=== PATIENT | female | born 1965 | race African-American/Black ===

== ENCOUNTER 2020-02-14 16:32 | Emergency (ER) | payer BC, SELFPAY ==
--- NOTE | ~2020-02-14 | XR_ITS ---
EXAMINATION: XR chest 1V portable DATE: 02/14/2020 17:29 INDICATION: Fever and shortness of breath TECHNIQUE: frontal view of the chest was obtained. COMPARISON: None FINDINGS: Airspace opacities in the bilateral lower lung zones. No pleural effusion or pneumothorax. The cardio mediastinal silhouette is normal. Visualized bones and soft tissues are unremarkable. IMPRESSION: 1. Airspace opacities in the bilateral lower lung zone which could represent atelectasis, pneumonia, mild pulmonary edema or some combination thereof. Reviewed, dictated and finalized at location A. IMPRESSION: 1. Airspace opacities in the bilateral lower lung zone which could represent at electasis, pneumonia, mild pulmonary edema or some combination thereof.
[2020-02-14 16:53] VITALS: BP 145/82; PULSE 89; RESP 15; TEMP 39.2; O2SAT 100
--- NOTE | 2020-02-14 16:53 | ECG_ITS ---
Measurements Intervals [place] Rate: 99 P: 73 ID: [id number] QRS: 46 QRSD: 82 T: 57 QT: 312 QTc: 400 Interpretive Statements SINUS RHYTHM NORMAL ECG Electronically Signed On 02-14-2020 19:00:30 CDT by Rosalino Brush D.O.
[2020-02-14 16:58] VITALS: BP 145/82; PULSE 87; RESP 22; O2SAT 100
[2020-02-14 17:14] LABS: Hematocrit 38.9 % (37.0-47.0); Hemoglobin 12.3 g/dL (12.0-15.0); Immature Granulocyte Absolute 0.01 K/mm3 (0.00-0.031); Immature Granulocyte Percent A 0.3 % (0-0.5); Lymphocytes Absolute Auto 0.97 K/mm3 (0.9-3.2); Mean Corpuscular HGB Conc 31.6 g/dl (32-36); Mean Corpuscular Hemoglobin 26.3 pg (26-34); Mean Corpuscular Volume 83.1 fl (80-100); Mean Platelet Volume 10.2 fl (7.4-10.4); Monocytes Absolute Auto 0.2 K/mm3 (0.1-0.6); Monocytes Percent Auto 5.8 % (2.6-8.5); Neutrophils Absolute Auto 2.3 K/mm3 (1.3-6.7); Neutrophils Percent Auto 65.9 % (45.5-73.1); Platelet Count Result 180 k/mm3 (150-375); Red Blood Count 4.68 M/mm3 (4.2-5.4); Red Cell Distribution Width 13.2 % (11.5-14.5); White Blood Count 3.5 K/mm3 (4.5-10.0)
[2020-02-14] MEDS: SODIUM CHLORIDE 0.9% IV 1,000 ML 999 ML IV CONT (17:20)
[2020-02-14 17:28] LABS: Lactic Acid Reflex 0.6 mmol/L (0.7-2.1)
[2020-02-14 17:29] LABS: Alanine Aminotransferase 18 U/L (4-35); Albumin Level 3.8 g/dL (3.5-5.1); Alkaline Phosphatase 86 U/L (38-126); Aspartate Amino Transferase 36 U/L (14-36); Bilirubin,Total 0.5 mg/dL (0.2-1.3); Blood Urea Nitrogen 8 mg/dL (7-17); CRP 2.8 mg/dL (<1.0); Calcium 8.6 mg/dL (8.4-10.2); Carbon Dioxide 24 mmol/L (22-30); Chloride 105 mmol/L (98-107); Estimated CRCL calculation 90 ml/min; Estimated Glomerular Filt Rate > 60; Glucose 102 mg/dL (65-105); Lactate Dehydrogenase 712 U/L (313-618); Potassium 3.6 mmol/L (3.4-5.0); Sodium 137 mmol/L (137-145)
[2020-02-14 17:50] VITALS: TEMP 38.2
--- NOTE | 2020-02-14 17:58 | ED.SOB ---
HPI - SOB/Dyspnea General Chief Complaint: Shortness of Breath/Dyspnea Stated Complaint: vomiting/body aches/sob Time Seen by Provider: 02/14/20 17:15 Source: patient Mode of arrival: ambulatory Limitations: no limitations History of Present Illness HPI Narrative: This is a 54 year old female that presents to the ER for cold symptoms x 1.5 weeks. Reports cough, congestion, shortness of breath and myalgias. Reports history of COPD. Reports a coworker that recently tested positive for coronavirus. Also reports she has been having intermittent left-sided chest pain that is sharp in nature. Lasts only briefly. Resolves on its own. Related Data Home Medications Medication Instructions Recorded Confirmed alendronate 70 mg PO WEEKLY 02/14/20 cetirizine 10 mg PO DAILY 02/14/20 diltiazem HCl 180 mg PO DAILY 02/14/20 montelukast 10 mg PO HS 02/14/20 pitavastatin calcium [Livalo] 4 mg PO DAILY 02/14/20 Allergies Allergy/AdvReac Type Severity Reaction Status Date / Time No Known Allergies Allergy Verified 02/14/20 17:17 Review of Systems Review of Systems: Narrative: CONSTITUTIONAL: Reports fever ENT: Reports rhinorrhea, congestion, sore throat CARDIOVASCULAR: Reports chest pain RESPIRATORY: Reports cough and dyspnea. MUSCULOSKELETAL: Reports myalgia. All systems reviewed & are unremarkable except as noted in HPI and below PMFSH Past Medical History Medical History (Updated 02/14/20 @ 19:34 by Chiara Shaw PA-C) History of COPD Family History Family History (Updated 11/21/16 @ 09:05 by DOCTOR UNKNOWN) Other Family history of alcoholism Family history of cardiovascular disease Family history of congestive heart failure Family history of malignant neoplasm of breast Hypertension Social History Social History (Updated 02/14/20 @ 18:04 by Chiara Shaw PA-C) Smoking status: Former smoker Alcohol intake: never Gender identity (if verbalized by the patient): Female Exam Narrative: Exam Narrative: GENERAL: Well-appearing, well-nourished, and in no acute distress. HEAD: Normocephalic, atraumatic. EYES: EOMI. ENT: Nares clear, no rhinorrhea or epistaxis. Mucous membranes moist. Oropharynx without tonsillar hypertrophy exudate or other lesions. Bilateral TMs pearly díaz non-bulging NECK: Supple. No adenopathy or masses. CHEST: No respiratory distress. Rales in the bilateral lower lobes. No wheezes or rhonchi HEART: Regular rate and rhythm. No murmur heard. Normal peripheral pulses. EXTREMITIES: Normal range of motion. No edema. SKIN: Warm, dry, no rash. NEURO: No focal deficits. Alert and oriented x3. PSYCH: Normal mood and affect Course Vital Signs Vital signs: Vital Signs Temperature 102.6 F H 02/14/20 16:53 Pulse Rate 89 02/14/20 16:53 Respiratory Rate 15 02/14/20 16:53 Blood Pressure 145/82 H 02/14/20 16:53 Pulse Oximetry 100 02/14/20 16:53 Temperature 100.8 F H 02/14/20 18:42 Pulse Rate 86 02/14/20 19:18 Respiratory Rate 19 02/14/20 19:18 Blood Pressure 146/80 H 02/14/20 19:18 Pulse Oximetry 100 02/14/20 19:18 MDM - SOB/Dyspnea MDM Narrative Medical decision making narrative: Patient presents to the ER for cold symptoms x 1.5 weeks. Reports recent contact with positive coronavirus co-worker. Patient febrile upon arrival, given IV fluids and Tylenol in the ED. Oxygen saturation has remained normal on room air. CBC is with mild leukopenia. Metabolic panel without acute findings. LDH is mildly elevated. Ferritin is normal. CRP mildly elevated. Patient had been reporting some intermittent chest pain over the last couple of days. Non-exertional in nature. EKG is without concerning findings and troponin is negative. Chest x-ray shows airspace opacities in the bilateral lower lung zones. Coronavirus test sent. Patient given dose of IV antibiotics in the ED for pneumonia. Will finish Azithromycin course outpatient due to co-morbid COPD. Sherry
[2020-02-14 18:19] LABS: Troponin I < 0.012 ng/mL (0.000-0.034)
[2020-02-14 18:42] VITALS: BP 154/81; PULSE 84; RESP 24; TEMP 38.2; O2SAT 98
[2020-02-14 19:18] VITALS: BP 146/80; PULSE 86; RESP 19; O2SAT 100
[2020-02-14 20:26] VITALS: BP 126/85; PULSE 79; RESP 19; TEMP 37.7; O2SAT 100
[2020-02-15 13:20] LABS: SARS-CoV-2 RNA PCR Positive
== END 2020-02-14 20:27 | disposition home or self-care (01) ==
PROVIDERS: Physician Assistant; Emergency Provider Emergency Medicine; PCP Internal Medicine
DX: U07.1 COVID-19 (principal); J18.9 Pneumonia, unspecified organism; J44.9 Chronic obstructive pulmonary disease, unspecified; Z87.891 Personal history of nicotine dependence
CPT/HCPCS: 36415; 71045; 80053; 82728; 83605; 83615; 84484; 85025; 86140; 87040; 87635; 93005; 96365; 96367; 96375; 99284; C9803; J0131; J0456; J0696; J7030; U0003

== ENCOUNTER 2020-02-28 13:58 | Outpatient (CLI) | payer BC, SELFPAY ==
--- NOTE | ~2020-02-28 | XR_ITS ---
XR chest 2V 02/28/2020 14:20 Indication: Pneumonia Procedure: 2 view chest Comparison: 02/14/2020 Findings: Improving bibasilar airspace disease, consistent with resolving pneumonia. Heart size nisreen l. No pleural effusion or pneumothorax. The lungs are hyperinflated which is consistent with, but not diagnostic of chronic obstructive pulmonary disease. Impression: 1: Improving bibasilar airspace disease, compatible with resolving pneumonia. Reviewed, dictated and finalized at location A. Impression: 1: Improving bibasilar airspace disease, compatible with resolving pneumonia.
== END 2020-02-28 13:59 | disposition home or self-care (01) ==
LOC: ANHIMG 14:05
PROVIDERS: PCP Internal Medicine; Visit Provider Internal Medicine
DX: J18.9 Pneumonia, unspecified organism (principal); R91.8 Other nonspecific abnormal finding of lung field
CPT/HCPCS: 71046

== ENCOUNTER 2021-11-29 23:27 | Emergency (ER) | payer BC, SELFPAY ==
--- NOTE | ~2021-11-29 | XR_ITS ---
EXAMINATION: XR chest 2V DATE: 11/30/2021 02:36 INDICATION: Cough TECHNIQUE: PA and lateral views of the chest are obtained. COMPARISON: 08/28/2020 FINDINGS: There are minimal airspace opacities in the right upper lung zone. There is no pleural effu akil or pneumothorax. The cardiomediastinal silhouette is normal. There is mild thoracic spondylosis. IMPRESSION: 1. Right upper lobe opacities, consistent with atelectasis versus pneumonia. Reviewed, dictated and finalized at location A.
[2021-11-29 23:35] VITALS: BP 123/69; PULSE 98; RESP 18; TEMP 36.3; O2SAT 98
[2021-11-30] MEDS: IPRATROPIUM BR 0.02% INH SOLN 0.5 MG/2.5 ML VIAL INHALATION (02:15)
[2021-11-30] MEDS: ALBUTEROL SULFATE NEB 2.5 MG/0.5 ML INH 5 MG INHALATION (02:15)
[2021-11-30 02:19] VITALS: PULSE 86; RESP 22
[2021-11-30 02:23] VITALS: PULSE 84; RESP 19
[2021-11-30 03:02] LABS: Basophils Percent Auto 0.4 % (0.2-1.2); Eosinophils Absolute Auto 0.3 K/mm3 (0-0.3); Hematocrit 43.5 % (37.0-47.0); Hemoglobin 13.4 g/dL (12.0-15.0); Immature Granulocyte Absolute 0.07 K/mm3 (0.00-0.031); Immature Granulocyte Percent A 0.7 % (0-0.5); Lymphocytes Absolute Auto 2.42 K/mm3 (0.9-3.2); Lymphocytes Percent Auto 25.3 % (18.3-44.2); Mean Corpuscular HGB Conc 30.8 g/dl (32-36); Mean Corpuscular Hemoglobin 26.7 pg (26-34); Mean Corpuscular Volume 86.7 fl (80-100); Mean Platelet Volume 9.7 fl (7.4-10.4); Monocytes Absolute Auto 0.9 K/mm3 (0.1-0.6); Monocytes Percent Auto 9.1 % (2.6-8.5); Neutrophils Absolute Auto 5.9 K/mm3 (1.3-6.7); Neutrophils Percent Auto 61.5 % (45.5-73.1); Platelet Count Result 282 k/mm3 (150-375); Red Blood Count 5.02 M/mm3 (4.2-5.4); Red Cell Distribution Width 13.3 % (11.5-14.5); White Blood Count 9.6 K/mm3 (4.5-10.0)
[2021-11-30] MEDS: SODIUM CHLORIDE 0.9% IV 1,000 ML 999 ML IV CONT (03:05)
[2021-11-30] MEDS: ONDANSETRON INJ 4 MG/2 ML VIAL IV PUSH (03:06)
[2021-11-30 03:09] VITALS: BP 131/73; PULSE 101; RESP 18; O2SAT 98
[2021-11-30 03:14] LABS: Anion Gap 10 mmol/L (8-16); Blood Urea Nitrogen 13 mg/dL (7-17); Carbon Dioxide 26 mmol/L (22-30); Chloride 102 mmol/L (98-107); Estimated CRCL calculation 83 ml/min; Estimated Glomerular Filt Rate > 60; Glucose 118 mg/dL (65-110); Potassium 4.1 mmol/L (3.4-5.0); Sodium 138 mmol/L (137-145)
--- NOTE | 2021-11-30 05:25 | ED.GENADULT ---
HPI - General Adult General Chief complaint: Upper Respiratory Infection Stated complaint: cough, fever Time Seen by Provider: 11/30/21 01:59 History of Present Illness HPI narrative: Patient is a 56-year-old female who presents to the ER with cough and congestion. She reports 1 week ago she had 3 days of fever with sinus congestion sore throat and cough. The fever went away but the cough is persisted. Patient has history of COPD. She has not been using her inhalers. Cough is productive. She is concerned she may have pneumonia and came in for evaluation. Related Data Home Medications Medication Instructions Recorded Confirmed alendronate 70 mg PO WEEKLY 02/14/20 cetirizine 10 mg PO DAILY 02/14/20 diltiazem HCl 180 mg PO DAILY 02/14/20 montelukast 10 mg PO HS 02/14/20 pitavastatin calcium [Livalo] 4 mg PO DAILY 02/14/20 Allergies Allergy/AdvReac Type Severity Reaction Status Date / Time No Known Allergies Allergy Verified 02/14/20 17:17 Review of Systems Review of Systems: All systems reviewed & are unremarkable except as noted in HPI and below Constitutional: Constitutional: Denies chills, Reports fatigue, Reports fever(s) and Denies weakness ENT: Reports nasal congestion and Reports sore throat Cardiovascular: Cardiovascular: Denies chest pain, Denies rapid heart rate and Denies radiating jaw, neck or arm pain Respiratory: Respiratory: Reports cough, Reports dyspnea and Denies wheezing Gastrointestinal: Gastrointestinal: Denies abdominal pain, Denies nausea and Denies vomiting Neurologic: Denies headache(s), Denies focal weakness and Denies numbness PMF Past Medical History Medical History (Updated 11/30/21 @ 05:26 by Jose Elias Tineo MD) History of COPD Surgical History Surgical History (Updated 11/30/21 @ 07:39 by Jose Elias Tineo MD) No pertinent past surgical history Family History Family History (Updated 11/21/16 @ 09:05 by DOCTOR UNKNOWN) Other Family history of alcoholism Family history of cardiovascular disease Family history of congestive heart failure Family history of malignant neoplasm of breast Hypertension Social History Social History (Updated 02/14/20 @ 18:04 by Chiara Shaw PA-C) Smoking status: Former smoker Alcohol intake: never Gender identity (if verbalized by the patient): Female Exam Narrative: GENERAL: Well-appearing, well-nourished, and in no acute distress. HEAD: Normocephalic, atraumatic. CHEST: Clear to auscultation. No respiratory distress. HEART: Regular rate and rhythm. Normal peripheral pulses. ABDOMEN: Soft, nontender, nondistended. EXTREMITIES: Normal range of motion. No edema. SKIN: Warm, dry, no rash. NEURO: Alert and oriented x3. PSYCH: Normal mood and affect. Course Course Emergency Course: Patient informed results. Resting comfortably. Had significant improvement in breathing thing and coughing has improved after nebulizer treatment. Patient declines any prescription for steroids as she does not like them. She will use her albuterol inhaler at home. Vital Signs Vital signs: Vital Signs Temperature 97.4 F L 11/29/21 23:35 Pulse Rate 98 11/29/21 23:35 Respiratory Rate 18 11/29/21 23:35 Blood Pressure 123/69 11/29/21 23:35 Pulse Oximetry 98 11/29/21 23:35 Temperature 97.4 F L 11/29/21 23:35 Pulse Rate 84 11/30/21 05:53 Respiratory Rate 18 11/30/21 05:53 Blood Pressure 143/75 H 11/30/21 05:53 Pulse Oximetry 97 11/30/21 05:53 Medical Decision Making Vital Signs Vital Signs: Vital Signs Temperature 97.4 F L 11/29/21 23:35 Pulse Rate 98 11/29/21 23:35 Respiratory Rate 18 11/29/21 23:35 Blood Pressure 123/69 11/29/21 23:35 Pulse Oximetry 98 11/29/21 23:35 Temperature 97.4 F L 11/29/21 23:35 Pulse Rate 84 11/30/21 05:53 Respiratory Rate 18 11/30/21 05:53 Blood Pressure 143/75 H 11/30/21 05:53 Pulse Oximetry 97 11/30/21 05:53
[2021-11-30 05:53] VITALS: BP 143/75; PULSE 84; RESP 18; O2SAT 97
--- NOTE | 2021-12-09 04:00 | PC.NURSE ---
NS bolus completed at this time.
== END 2021-11-30 05:57 | disposition home or self-care (01) ==
PROVIDERS: Emergency Provider Emergency Medicine; PCP Internal Medicine
DX: J40 Bronchitis, not specified as acute or chronic (principal); J44.9 Chronic obstructive pulmonary disease, unspecified; Z87.891 Personal history of nicotine dependence
CPT/HCPCS: 36415; 71046; 80048; 85025; 94640; 96361; 96374; 99284; J2405; J7030